=== PATIENT | male | born 1985 | race Caucasian/White ===

== ENCOUNTER 2021-04-06 05:55 | Day surgery (SDC) | payer OTHER ==
[2021-04-06] MEDS ORDERED: PERCOCET 5-3251 EACH PO (08:41)
[2021-04-06] MEDS ORDERED: RECTICARE30 GM TOP (08:41)
== END 2021-04-06 14:25 | disposition home or self-care (01) ==
LOC: CIR.AMB 05:55
PROVIDERS: ATTEND Surgery
DX: A63.0 Anogenital (venereal) warts (principal); Z20.822 Contact with and (suspected) exposure to COVID-19